=== PATIENT | female | born 1970 | race Caucasian/White ===

== ENCOUNTER 2016-07-13 13:29 | Emergency (ER) | payer OTHER ==
[~2016-07-13] VITALS: Ht 160 cm; Wt 90.3 kg
[~2016-07-13 13:29] MED LIST: FLEXERIL10 MG PO; MEDROL DOSEPAK4 MG PO; NO HOME MEDICATION; NOHOMEMEDS; NORCO 5/3251 TABLET PO; PERCOCET 5/31 TABLET PO; VALIUM2 MG PO
[2016-07-13 14:42] LABS: HEMATOCRIT 40.9 % (36.0-46.0); MCH 30.3 PG (29.0-34.0); MCHC 33.3 G/DL (30.0-36.0); MCV 91.1 FL (83-99); MEAN PLAT.VOLUME 9.9 uM^3 (9.5-12.4); PLATELET COUNT 243 K/uL (156-360); RBC DIS.WIDTH-CV 12.6 % (11.8-14.6); RBC DIS.WIDTH-SD 40.9 % (39-53); RED BLOOD COUNT 4.49 M/uL (3.80-5.20)
[2016-07-13 14:50] LABS: CHLORIDE 105 mEq/L (99-109); POTASSIUM 3.9 mEq/L (3.7-5.4); SODIUM 137 mEq/L (136-147)
[2016-07-13 14:52] LABS: GLUCOSE 89 mg/dL (70-99)
[2016-07-13 14:53] LABS: ANION GAP 8 MEQ/L (2-14)
[2016-07-13 14:56] LABS: GFR ESTIMATE (CALCULATED) > 59 mL/min/
[2016-07-13 14:57] LABS: UREA NITROGEN (BUN) 14 mg/dL (9-23)
[2016-07-13 15:02] LABS: TROP-I INTERPRETATION NEGATIVE; TROPONIN-I < 0.01 ng/mL (0.0-0.30)
[2016-07-13 16:09] LABS: INFLUENZA A VIRAL ANTIGEN NEGATIVE; INFLUENZA B VIRAL ANTIGEN NEGATIVE
[2016-07-13] MEDS ORDERED: ZITHROMAX250 MG PO (16:20)
[2016-07-13 16:33] VITALS: BP 114/78
== END 2016-07-13 16:34 | disposition home or self-care (01) ==
LOC: RME 13:29 → EME 13:29 → RME 16:34
PROVIDERS: Nurse Practitioner Family
DX: J40 Bronchitis, not specified as acute or chronic (principal); F17.200 Nicotine dependence, unspecified, uncomplicated
CPT/HCPCS: 71020; 80048; 84484; 85027; 87502; 93005; 99281; 99284

== ENCOUNTER 2016-09-02 05:26 | Day surgery (SDC) | payer OTHER ==
[~2016-09-02] VITALS: Ht 161.3 cm; Wt 84.4 kg
[~2016-09-02 05:26] MED LIST changes: +PROVERA,CYCRIN10 MG PO; +ZITHROMAX250 MG PO
[2016-09-02 07:32] VITALS: BP 123/75
[2016-09-02] MEDS ORDERED: ENDOCET 5-3251 EACH PO (08:24)
[2016-09-02 09:10] VITALS: BP 141/85
[2016-09-02 09:53] VITALS: BP 125/60
== END 2016-09-02 10:01 | disposition home or self-care (01) ==
LOC: SDC 05:26
PROC: 0U5B8ZZ Destruction of Endometrium, Via Natural or Artificial Opening Endoscopic (ICD-10-PCS; principal; 2016-09-02)
DX: N92.0 Excessive and frequent menstruation with regular cycle (principal); N84.0 Polyp of corpus uteri; N91.2 Amenorrhea, unspecified; M54.32 Sciatica, left side; K58.9 Irritable bowel syndrome, unspecified
CPT/HCPCS: 88305; J1100; J1885; J2250; J2405; J3010

== ENCOUNTER 2017-09-27 22:21 | Emergency (ER) | payer BC ==
[~2017-09-27] VITALS: Ht 160 cm; Wt 79.0 kg
[~2017-09-27 22:21] MED LIST changes: +ENDOCET 5-3251 EACH PO
[2017-09-27 22:52] LABS: HEMATOCRIT 39.1 % (36.0-46.0); HEMOGLOBIN 13.6 G/DL (11.9-15.5); MCH 31.5 PG (29.0-34.0); MCHC 34.8 G/DL (30.0-36.0); MCV 90.5 FL (83-99); PLATELET COUNT 269 K/uL (156-360); RBC DIS.WIDTH-SD 39.8 % (39-53); RED BLOOD COUNT 4.32 M/uL (3.80-5.20); WHITE BLOOD COUNT 11.4 K/uL (4.1-10.2)
[2017-09-27 23:05] LABS: ALBUMIN 3.8 g/dL (3.2-4.8); CHLORIDE 107 mEq/L (99-109); POTASSIUM 3.1 mEq/L (3.7-5.4); SODIUM 141 mEq/L (136-147)
[2017-09-27 23:07] LABS: GLUCOSE 172 mg/dL (70-99)
[2017-09-27 23:08] LABS: TOTAL PROTEIN 6.1 g/dL (6.4-8.3)
[2017-09-27 23:09] LABS: TOTAL BILIRUBIN 0.2 mg/dL (0.0-1.0)
[2017-09-27 23:11] LABS: ALKALINE PHOSPHATASE 83 IU/L (3-129); CREATININE 0.8 mg/dL (0.6-1.3); GFR ESTIMATE (CALCULATED) > 59 mL/min/
[2017-09-27 23:12] LABS: UREA NITROGEN (BUN) 11 mg/dL (9-23)
[2017-09-27 23:13] LABS: AST (GOT) 11 IU/L (2-34)
[2017-09-27 23:14] LABS: ALT (GPT) 14 IU/L (3-49)
[2017-09-27 23:20] LABS: QUANTITATIVE HCG < 4.0 MIU/ML
[2017-09-27 23:47] LABS: APPEARANCE CLEAR ((CLEAR)); BILIRUBIN NEGATIVE; BLOOD NEGATIVE; COLOR YELLOW ((YELLOW)); GLUCOSE (STRIP) NEGATIVE; KETONES 5; LEUKOCYTES NEGATIVE; NITRITE NEGATIVE; PROTEIN (STRIP) NEGATIVE; SPECIFIC GRAVITY 1.016 (1.000-1.030); UCUL ADDED? NO; UROBILINOGEN 0.2 MG/DL (0.2-1.0)
[2017-09-28] MEDS ORDERED: PERCOCET 5/31 TABLET PO (01:25)
[2017-09-28] MEDS ORDERED: ZOFRAN ODT4 MG PO (01:25)
[2017-09-28 01:57] VITALS: BP 128/78
== END 2017-09-28 01:39 | disposition home or self-care (01) ==
LOC: EME 22:21
DX: N83.201 Unspecified ovarian cyst, right side (principal); F17.200 Nicotine dependence, unspecified, uncomplicated; Z90.49 Acquired absence of other specified parts of digestive tract; Z98.51 Tubal ligation status; Z91.018 Allergy to other foods
CPT/HCPCS: 74176; 80053; 81003; 84702; 85027; 99281; 99285; J2270; J2405; J7030